=== PATIENT | female | born 1990 | race Caucasian/White ===

== ENCOUNTER 2018-02-18 10:53 | Emergency (ER) | payer OTHER ==
[~2018-02-18] VITALS: Ht 170.2 cm; Wt 75.0 kg
[~2018-02-18 10:53] MED LIST: CETI10; FLAG250T PO; LESSTAB PO
[2018-02-18 11:11] VITALS: BP 128/77; PULSE 83; RESP 16; TEMP 98.2; O2SAT 100
[2018-02-18] MEDS ORDERED: IBUPROFEN 800 MG TAB PO ONE (11:45)
[2018-02-18] MEDS ORDERED: METHOCARBAMOL 500 MG TAB PO ONE (11:45)
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
[2018-02-18] MEDS ORDERED: IBUP1TAB7 PO (12:44)
[2018-02-18] MEDS ORDERED: ROBA500T PO (12:44)
== END 2018-02-18 13:05 | disposition home or self-care (01) ==
LOC: NEPD 10:53
DX: S16.1XXA Strain of muscle, fascia and tendon at neck level, initial encounter (principal); S69.91XA Unspecified injury of right wrist, hand and finger(s), initial encounter; T14.8XXA Other injury of unspecified body region, initial encounter; V49.88XA Car occupant (driver) (passenger) injured in other specified transport accidents, initial encounter
CPT/HCPCS: 70450; 71045; 73110; 84703; 99284; L3908